=== PATIENT | female | born 1955 | race African-American/Black ===

== ENCOUNTER → 2019-05-23 | Outpatient (CLI) | payer MEDICARE, MEDICAID ==
[~2019-05-23] MED LIST: BARIUM SULFATE(VOLUMEN) 450 ML ORAL.SUSP ONE; IOHEXOL-350 100 ML BOTTLE ONE
== END | disposition home or self-care (01) ==
LOC: CT 08:08
PROVIDERS: ATTEND Internal Medicine Gastroenterology
DX: K76.89 Other specified diseases of liver (principal); K80.20 Calculus of gallbladder without cholecystitis without obstruction; K57.90 Diverticulosis of intestine, part unspecified, without perforation or abscess without bleeding
CPT/HCPCS: 74177; Q9967

== ENCOUNTER 2022-04-13 10:59 | Emergency (ER) | payer MEDICARE, MEDICAID ==
[~2022-04-13] VITALS: Ht 160 cm; Wt 61.0 kg
[2022-04-13 11:10] VITALS: BP 157/98
[2022-04-13] MEDS ORDERED: CETI10TA6 PO (11:33)
[2022-04-13] MEDS ORDERED: DOXY-326 PO (11:33)
[2022-04-13] MEDS ORDERED: HYDR453.3 TP (11:33)
== END 2022-04-13 11:42 | disposition home or self-care (01) ==
LOC: ER 10:59
DX: L03.114 Cellulitis of left upper limb (principal); L03.113 Cellulitis of right upper limb; L30.8 Other specified dermatitis
CPT/HCPCS: 99283